=== PATIENT | male | born 1955 | race Caucasian/White ===

== ENCOUNTER 2018-05-23 10:45 | Inpatient (IN) | payer BC ==
[~2018-05-23] VITALS: Ht 182.9 cm; Wt 94.3 kg
[2018-05-23] VITALS (20 sets, daily range): BP systolic 108–173; BP diastolic 61–110; BMI 28.1
--- NOTE | ~2018-05-23 | HEMODYNAMI ---
PATIENT:CLIFF BREWSTER MEDICAL RECORD: [id number] : 51 LOCATION:[facility] D.2117 ADMISSION DATE: 05/23/18 Generatedon:05/25/20188:40 Patient name: CLIFF BREWSTER Patient #: [id number] SSN: : Date of study: 05/25/2018 Page: Of Hemodynamic Procedure Report Patient Data Patient Demographics Procedure consent was obtained First Name: CLIFF Gender: Male Last Name: NARCISA : 1955 Patient #: [id number] Age: 62 year(s) Race: Unknown Additional ID: [id number] Contact details [address]: [address] [place] [address] State: [place] City: [place] Zip code: [address] Past Medical History Allergies: No known allergies Admission Admission Data Admission Date: 05/23/2018 Admission Time: 12:05 Room #: [facility] Procedure Procedure Types Cath Procedure PCI Procedure Coronary Stent Coronary Stent Initial Procedure Description Procedure Date Procedure Date: 05/25/2018 Procedure Start Time: 8:27 Procedure End Time: 8:39 Procedure Staff Name Function Joe Gibbs MD Performing Physician Ragini Edwards RN Nurse Julia Silverio RT Scrub Valentine Shine RT Scrub Daljit Phan RT Medical Anthropology Director Procedure Data Cath Procedure Fluoroscopy Diagnostic fluoroscopy Total fluoroscopy Time: 3.2 time: 3.2 min min Diagnostic fluoroscopy Total fluoroscopy dose: 500 dose: 500 mGy mGy Contrast Material Contrast Material Type Amount (ml) Isovue 300 73 Entry Location Entry Primary Successful Side Size Upsize Upsize Entry Closure Succes sful Closure Location (Fr) 1 (Fr) 2 (Fr) Remarks Device Remarks Femoral Right 6 Fr Exoseal artery Short Estimated blood loss: 10 ml Procedure Complications No complications Procedure Medications Medication Administration Route Dosage 0.9% NaCl I.V. 100 ml/hr Oxygen etCO2 Nasal cannula 2 l/min Lidocaine 2% added to field 20 Heparin Flush Bag added to field 2 bags (1000units/500ml NS) Versed I.V. 2 mg Fentanyl I.V. 50 mcg Heparin Bolus I.V. 4000 units Versed I.V. 1 mg Fentanyl I.V. 25 mcg Hemodynamics Rest Heart Rate: 80 (bpm) Snapshots Pre Cath Intra NCS Post Cath Vital Signs Time Heart Resp SPO2 etCO2 NIBP (mmHg) Rhythm Pain Sedation Rate (ipm) (%) (mmHg) Status Level (bpm) 8:12:23 85 18 98 34.2 186/106(154) NSR 0 (11) 10(A) , No pain 8:16:50 86 18 97 36.5 176/100(138) NSR 0 (11) 10(A) , No pain 8:21:10 83 18 98 34.2 163/97(121) NSR 0 (11) 10(A) , No pain 8:25:24 81 17 96 15.6 158/102(128) NSR 0 (11) 10(A) , No pain 8:29:44 80 17 98 40.2 166/95(121) NSR 0 (11) 9(A) , No pain 8:34:06 78 16 99 32 162/89(120) NSR 0 (11) 9(A) , No pain 8:38:18 78 17 96 15.6 156/95(128) NSR 0 (11) 10(A) , No pain Medications Time Medication Route Dose Verified Delivered Reason Notes Effectiveness by by 8:08:37 0.9% NaCl I.V. 100 Joe Ragini used for ml/hr Bernie Edwards leather leveler 8:08:44 Oxygen etCO2 2 Joe Ragini used for Nasal l/min Bernie Edwards procedure cannula RN 8:08:51 Lidocaine 2% added 20ml Joe Joe for local to vial Bernie Gibbs MD anesthetic field 8:09:03 Heparin Flush added 2 Joe Joe used for Bag to bags Bernie Gibbs MD procedure (1000units/500ml field NS) 8:25:02 Versed I.V. 2 mg Joe Ragini for sedation Bernie Edwards RN 8:25:08 Fentanyl I.V. 50 Joe Ragini for sedation mcg Bernie Edwards RN 8:30:35 Heparin Bolus I.V. 4000 Joe Ragini for verifi ed units Bernie Edwards anticoagulation with Dr. OSCAR Gibbs 8:30:48 Versed I.V. 1 mg Joe Eid for sedation Bernie Edwards RN 8:30:54 Fentanyl I.V. 25 Joe Eid for sedation mcg Bernie Edwards director of home health services Log Time Note 7:42:40 Time tracking: Regular hours (M-F 7:00 - 5:00) 7:42:44 Plan of Care:Hemodynamics will remain stable., Cardiac rhythm will remain stable., Comfort level will be maintained., Respiratory function will remain adequate., Patient/ family verbilizes understanding of procedure., Procedure tolerated without complication., Recovers from procedure without complications.. 7:42:58 Daljit Phan RT(R) sent for patient. Start room use. 8:03:05 Patient received from PCU to CCL 1 Alert and oriented. Tansferred to table in Supine position. 8:03:06 Warm blankets applied, and chaka hugger turned on for patient comfort. 8:03:07 Correct patient and procedure confirmed by team. 8:03:08 Signed procedure consent form obtained from patient. 8:03:09 ECG and BP/O2 sat monitors applied to patient. 8:03:10 Full Disclosure recording started 8:08:01 Vital chart was started 8:08:05 Rhythm: sinus rhythm 8:08:13 H&P Date Dictated: 05/23/2018 Within 30 days and on chart.. 8:08:14 Pre-procedure instructions explained to patient. 8:08:14 Pre-op teaching completed and patient verbalized understanding. 8:08:16 Family in patients room. 8:08:17 Patient NPO since Midnight. 8:08:22 Is the patient allergic to Iodine/contrast media? No. 8:08:23 Is patient on blood thinner?Yes 8:08:26 ACC The patient was administered the following blood thiners within the last 24 hours: ACCPlavix 8:08:37 0.9% NaCl 100 ml/hr I.V. was administered by Ragini Edwards RN; used for procedure; 8:08:44 Oxygen 2 l/min etCO2 Nasal cannula was administered by Ragini Edwards RN; used for procedure; 8:08:51 Lidocaine 2% 20ml vial added to field was administered by Joe Gibbs MD; for local anesthetic; 8:08:58 Patient diabetic? No. 8:09:03 Heparin Flush Bag (1000units/500ml NS) 2 bags added to field was administered by Joe Gibbs MD; used for procedure; 8:09:21 Previous problem with sedation/anesthesia? No ? 8:09:23 Snore? Yes 8:09:24 Sleep apnea? No 8:09:25 Deviated septum? No 8:09:25 Opens mouth fully? Yes 8:09:26 Sticks out tongue? Yes 8:09:40 Airway obstruction? Yes COPD 8:09:44 Dentures? No ? 8:09:47 Pre procedure: right dorsailis pedis pulse 2+ Normal; easily identifiable; not easily obliterated 8:09:50 Patient pain scale 0/10 ?. 8:10:00 IV patent on arrival in right wrist with 0.9% NaCl at [facility]. 8:10:02 Lab results completed and on chart. 8:15:42 Right groin area was prepped with chlora-prep and draped in sterile fashion 8:15:43 Alarms reviewed by R. N. 8:15:47 Sharps counted by scrub and verified by R.N. 8:15:57 Use device set CATH PACK 8:15:58 ACIST Syringe (25303) opened to sterile field. 8:15:58 ACIST Hand Control (05940) opened to sterile field. 8:15:59 ACIST Manifold (77068) opened to sterile field. 8:15:59 Medline Cath Pack ([id number]) opened to sterile field. 8:15:59 Bag Decanter (2002) opened to sterile field. 8:16:00 DIAGNOSTIC WIRE .035 260cm J wire (115530) opened to sterile field. 8:16:13 CHOICE PT Extra Support 182cm wire ([id number]) opened to sterile field. 8:16:13 INFLATOR Merit BasixCompak (LA1876) opened to sterile field. 8:16:14 SHEATH 6FR [place] (NVZ999) opened to sterile field. 8:24:29 Final Timeout: patient, procedure, and site verified with staff and physician. All members of the team are in agreement. 8:24:31 Right groin site verified by team. 8:24:37 Fire Safety Assessment: A--An alcohol-based skin anteseptic being used preoperatively., C--Open oxygen or nitrous oxide is being used., D--An ESU, laser, or fiber-optic light is being used. 8::41 Physical assessment completed. ASA score P 2 - A patient with mild systemic disease as per Joe Gibbs MD. 8:24:45 Sedation plan: IV Moderate Sedation Medication:Versed, Fentanyl 8:25:02 Versed 2 mg I.V. was administered by Ragini Edwards RN; for sedation; 8::08 Fentanyl 50 mcg I.V. was administered by Ragini Edwards RN; for sedation; 8:25:14 Zero performed for pressure channel P1 8::08 GUIDE 6FR XBLAD 3.5 catheter ([id number]) opened to sterile field. 8::24 Procedure started. 8::26 Local anesthetic to right femoral artery with Lidocaine 2% by Joe Gibbs MD.INITIAL ACCESS ONLY 8:28:18 A 6 Fr Short sheath was inserted into the Right Femoral artery 8::35 Baseline sample Acquired. 8:28:59 6 Fr XBLAD 3.5 guide catheter was inserted over the wire 8::35 Heparin Bolus 4000 units I.V. was administered by Ragini Edwards RN; for anticoagulation; verified with Dr. Gibbs 8:30:48 Versed 1 mg I.V. was administered by Ragini Edwards RN; for sedation; 8:30:54 Fentanyl 25 mcg I.V. was administered by Ragini Edwards RN; for sedation; 8:32:00 CHOICE PT ES wire advanced. 8:34:01 Place stent Inflation Number: 1 A INTEGRITY RX 2.5 x 26 stent ([id number]) was prepped and advanced across the Mid LAD. The stent was deployed at 15 EZEQUIEL for 0:11 (min:sec). 8::41 Stent catheter was removed intact over wire. 8:35:41 Place stent Inflation Number: 2 A INTEGRITY RX 2.5 x 26 stent ([id number]) was prepped and advanced across the Mid LAD. The stent was deployed at 13 EZEQUIEL for 0:10 (min:sec). 8:36:12 Stent catheter was removed intact over wire. 8:36:13 Wire removed. 8:36:14 Guide catheter removed. 8:36:22 Sheath removed intact; hemostasis achieved with Exoseal to the Right Femoral artery. 8:36:43 Procedure ended.(Physican Out) 8:37:00 Fluoroscopy time 03.20 minutes. 8:37:03 Flurop Dose total: 500 8:37:03 Fluoroscopy dose: 500 mGy 8:37:06 Contrast amount:Isovue 300 73ml. 8:37:08 Sharps counted by scrub and verified by R.N. 8:37:09 Insertion/operative site no bleeding no hematoma. 8:37:12 Post-op/insertion site Right Femoral artery dressed using a 4 x 4 and Tegaderm. 8:37:15 Post right femoral artery:stable, clean and dry 8:37:17 Post Procedure Pulses reassessed and unchanged 8:37:20 Post-procedure physical assessment completed. ASA score P 2 - A patient with mild systemic disease as per Joe Gibbs MD. 8:38:26 Post procedure rhythm: unchanged. 8:38:29 Estimated blood loss: 10 ml 8:38:30 Post procedure instruction explained to patient.Patient verbalizes understanding. 8:38:31 Patient needs reinforcement of post procedure teaching. 8:38:46 Procedure Complication : No complications 8:38:47 See physician's report for complete and final results. 8:39:06 Tegaderm 4 x 4 (1626W) opened to sterile field. 8:39:07 EXOSEAL 6Fr (EX600) opened to sterile field. 8:39:27 Procedure and supply charges have been captured, reviewed, submitted and are correct. 8:39:27 Vital chart was stopped 8:39:29 Report given to PCU. 8:39:36 Patient transfered to PCU with Bed. 8:39:45 Procedure ended. 8:39:45 Full Disclosure recording stopped 8:39:49 End room use (Document Last) Intervention Summary Intervention Notes Time ActionType Lesion and Equipment Action# Pressure Duration Attributes Used 8:34:01 Place stent Mid LAD INTEGRITY RX 1 15 00:11 2.5 x 26 stent ([id number]) 8:35:41 Place stent Mid LAD INTEGRITY RX 2 13 00:10 2.5 x 26 stent ([id number]) Device Usage Item Name Manufacture Quantity Catalog Number Hospital Part Current Mini [facility] Lot# / Charge Number Stock Stock Serial# Code ACIST Acist 1 20342 679290 [id number] 492488 20 Syringe Medical (34698) Systems Inc ACIST Hand Acist 1 77026 327407 704383 643132 5 Control Medical (45666) Systems Inc ACIST Acist 1 38832 705125 843869 142293 5 Manifold Medical (16939) Systems Inc Medline Cath Medline 1 [id number] 081903 23130 107753 5 Pack ([id number]) Bag Decanter Microtek 1 2001S 471277 57141 652753 5 (2001S) Medical Inc. DIAGNOSTIC St Yang 1 225126 560767 428243 855895 30 WIRE .035 260cm J wire (843780) CHOICE PT Reydon 1 [id number] 966369 763299 248062 5 Extra Scientific Support 182cm wire ([id number]) INFLATOR Merit 1 ZQ6718 706123 996222 033926 15 Amiare BasixCompak (OH7459) SHEATH 6FR Terumo 1 GMY337 009905 473588 578087 40 [place] (WAI738) GUIDE 6FR Cardinal 1 [id number] 128464 876768 290184 10 XBLAD 3.5 Health catheter (18477600) INTEGRITY RX Medtronic 2 [id number] 145792 591960 176624 5 [id number] 2.5 x 26 [id number] stent ([id number]) Tegaderm 4 x 3M 1 1626W 525702 534633 964381 5 4 (1626W) EXOSEAL 6Fr Cardinal 1 EX600 561475 582574 403045 10 (EX600) Health Signature Audit [place] Stage Time Signature Unsigned Intra-Procedure 05/25/2018 Valentine 8:40:32 AM Counts RT(R) [facility] [address] [place] [address]
--- NOTE | ~2018-05-23 | HEMODYNAMI ---
PATIENT:CLIFF BREWSTER MEDICAL RECORD: [id number] : 51 LOCATION:[facility]# [id number] ADMISSION DATE: 05/23/18 Generatedon:05/23/201811:41 Patient name: CLIFF BREWSTER Patient #: [id number] SSN: : Date of study: 05/23/2018 Page: Of Hemodynamic Procedure Report Patient Data Patient Demographics Procedure consent was obtained First Name: CLIFF Gender: Male Last Name: NARCISA : 1955 Patient #: [id number] Age: 62 year(s) Race: Unknown Additional ID: [id number] Past Medical History Allergies: No known allergies Admission Admission Data Admission Date: 05/23/2018 Admission Time: 10:45 Procedure Procedure Types Cath Procedure Diagnostic Procedure C [facility] w/Coronaries PCI Procedure AMI/SVG/REFURBISH TECHNICIAN PTCA or Stent AMI-BMS/BALBINA Initial Procedure Description Procedure Date Procedure Date: 05/23/2018 Procedure Start Time: 11:21 Procedure End Time: 11:35 Procedure Staff Name Function Valentine Shine RT Monitor Mercedes Santamaria RT Scrub Franck Murillo RN Nurse Joe Gibbs MD Performing Physician Julia Silverio RT Scrub Procedure Data Cath Procedure Fluoroscopy Diagnostic fluoroscopy Total fluoroscopy Time: 2 time: 2 min min Diagnostic fluoroscopy Total fluoroscopy dose: 427 dose: 427 mGy mGy Contrast Material Contrast Material Type Amount (ml) Isovue 300 57 Entry Location Entry Primary Successful Side Size Upsize Upsize Entry Closure Succes sful Closure Location (Fr) 1 (Fr) 2 (Fr) Remarks Device Remarks Femoral Right 6 Fr Exoseal artery Short Estimated blood loss: 10 ml Diagnostic catheters Device Type Used For End Catheter Placement MULTIPACK Pigtail 5 Fr LV Angiography catheter MULTIPACK JL 4.0 5Fr Left Coronary catheter Angiography MULTIPACK 3DRC 5Fr Right Coronary catheter Angiography Procedure Complications No complications Procedure Medications Medication Administration Route Dosage Oxygen etCO2 Nasal cannula 2 l/min Lidocaine 2% 20 Heparin Flush Bag added to field 2 bags (1000units/500ml NS) 0.9% NaCl I.V. 100 ml/hr Plavix P.O. 600 mg Versed I.V. 2 mg Fentanyl I.V. 100 mcg Versed I.V. 1 mg Fentanyl I.V. 50 mcg Heparin Bolus I.V. 5000 units Integrilin (Bolus I.V. 9 ml 2mg/ml) Hemodynamics Rest Heart Rate: 69 (bpm) Snapshots Pre Cath Intra NCS Post Cath Vital Signs Time Heart Resp SPO2 etCO2 NIBP (mmHg) Rhythm Pain Sedation Rate (ipm) (%) (mmHg) Status Level (bpm) 11:12:25 67 20 95 0 Measuring NSR 0 (11) 10(A) , No pain 11:13:12 68 18 95 0 195/116(133) NSR 0 (11) 10(A) , No pain 11:17:50 73 14 98 0 187/105(137) NSR 0 (11) 10(A) , No pain 11:22:10 71 18 98 0 154/93(125) NSR 0 (11) 9(A) , No pain 11:26:29 76 17 96 0 151/95(117) NSR 0 (11) 9(A) , No pain 11:30:53 73 17 95 0 146/99(123) NSR 0 (11) 10(A) , No pain 11:34:13 77 18 95 0 150/101(125) NSR 0 (11) 10(A) , No pain Medications Time Medication Route Dose Verified Delivered Reason Notes Effectiveness by by 11:09:21 Oxygen etCO2 2 Joe Buffie used for Nasal l/min Bernie Murillo RN procedure cannula 11:10:27 Lidocaine 2% 20ml Joe Buffie for local vial Bernie Murillo RN anesthetic 11:10:33 Heparin Flush added 2 Joe Buffie used for Bag to bags Bernie Murillo RN procedure (1000units/500ml field NS) 11:10:40 0.9% NaCl I.V. 100 Joe Buffie Per physician ml/hr Bernie Murillo RN 11:10:51 Plavix P.O. 600 Joe Buffie for mg Bernie Murillo RN antiplatelet therapy 11:17:09 Versed I.V. 2 mg Joe Hidalgoie for sedation Bernie Murillo RN 11:17:14 Fentanyl I.V. 100 Joe Hidalgoie for sedation mcg Bernie Murillo RN 11:19:15 Versed I.V. 1 mg Joe Juárez for sedation Bernie Murillo RN 11:19:18 Fentanyl I.V. 50 Joe Juárez for sedation mcg Bernie Murillo RN 11:24:40 Heparin Bolus I.V. 5000 Joe Juárez for verif ied units Bernie Murillo RN anticoagulation with dr gibbs 11:26:51 Integrilin I.V. 9 ml Joe Juárez for waste d 1 (Bolus 2mg/ml) Bernie Murillo RN antiplatelet ml of therapy vial Procedure Log Time Note 11:00:27 Franck Murillo RN sent for patient. Start room use. 11:00:28 Time tracking: Regular hours (M-F 7:00 - 5:00) 11:00:32 Plan of Care:Hemodynamics will remain stable., Cardiac rhythm will remain stable., Comfort level will be maintained., Respiratory function will remain adequate., Patient/ family verbilizes understanding of procedure., Procedure tolerated without complication., Recovers from procedure without complications.. 11:06:29 Patient received from ED to CCL 1 Alert and oriented. Tansferred to table in Supine position. 11:06:30 Warm blankets applied, and chaka hugger turned on for patient comfort. 11:06:31 Correct patient and procedure confirmed by team. 11:06:32 Signed procedure consent form obtained from patient. 11:06:33 ECG and BP/O2 sat monitors applied to patient. 11:06:34 Full Disclosure recording started 11:08:23 H&P Date Dictated: 05/23/2018 ER History on chart., New H&P dictated by physician.. 11:08:24 Pre-op teaching completed and patient verbalized understanding. 11:08:24 Pre-procedure instructions explained to patient. 11:08:29 Family in waiting room. 11:08:32 Patient NPO since Breakfast. 11:08:42 Patient allergic to No known allergies 11:08:44 Is the patient allergic to Iodine/contrast media? No. 11:08:45 Is patient on blood thinner?Yes 11:08:57 ACC The patient was administered the following blood thiners within the last 24 hours: ACCAspirin 11:08:59 Patient diabetic? No. 11:09:01 ACC The patient was administered the following blood thiners within the last 24 hours: ACCPlavix 11:09:05 If diabetic: On Metformin? No 11:09:07 Previous problem with sedation/anesthesia? No ? 11:09:08 Snore? Yes 11:09:09 Sleep apnea? No 11:09:10 Deviated septum? No 11:09:11 Sticks out tongue? Yes 11:09:11 Opens mouth fully? Yes 11:09:14 Airway obstruction? Yes COPD 11:09:17 Dentures? No ? 11:09:21 Pre procedure: right dorsailis pedis pulse 2+ Normal; easily identifiable; not easily obliterated 11:09:21 Oxygen 2 l/min etCO2 Nasal cannula was administered by Franck Murillo RN; used for procedure; 11:09:30 Patient pain scale 2/10 CHEST PAIN. 11:09:48 IV patent on arrival in left antecubital, right wrist with 0.9% NaCl at O. 11:09:54 Lab results pending. 11:09:57 Right groin area was prepped with chlora-prep and draped in sterile fashion 11:09:59 Sharps counted by scrub and verified by R.N. 11:09:59 Alarms reviewed by R. N. 11:10:01 Use device set Femoral Dx 11:10:03 Medline Cath Pack ([id number]) opened to sterile field. 11:10:03 Bag Decanter (2002S) opened to sterile field. 11:10:03 ACIST Syringe (78295) opened to sterile field. 11:10:04 ACIST Hand Control (17223) opened to sterile field. 11:10:05 Tegaderm 4 x 4 (1626W) opened to sterile field. 11:10:05 ACIST Manifold (28723) opened to sterile field. 11:10:07 DIAGNOSTIC Multipack 5Fr catheter set (VH1181) opened to sterile field. 11:10:08 DIAGNOSTIC WIRE .035 260cm J wire (474917) opened to sterile field. 11:10:21 CHOICE PT Extra Support 182cm wire ([id number]) opened to sterile field. 11:10:22 INFLATOR Merit BasixCompak (KM0937) opened to sterile field. 11:10:23 SHEATH 6FR Metz (JKN529) opened to sterile field. 11:10:27 Lidocaine 2% 20ml vial was administered by Franck Murillo RN; for local anesthetic; 11:10:33 Heparin Flush Bag (1000units/500ml NS) 2 bags added to field was administered by Franck Murillo RN; used for procedure; 11:10:35 Vital chart was started 11:10:40 0.9% NaCl 100 ml/hr I.V. was administered by Franck Murillo RN; Per physician; 11:10:50 Baseline sample Acquired. 11:10:51 Plavix 600 mg P.O. was administered by Franck Murillo RN; for antiplatelet therapy; 11:10:57 Rhythm: sinus rhythm 11:13:10 IV Extension Set opened to sterile field. 11:16:11 Physician paged 11:16:26 Final Timeout: patient, procedure, and site verified with staff and physician. All members of the team are in agreement. 11:16:28 Right groin site verified by team. 11:16:31 Fire Safety Assessment: A--An alcohol-based skin anteseptic being used preoperatively., C--Open oxygen or nitrous oxide is being used., D--An ESU, laser, or fiber-optic light is being used. 11:16:34 Physical assessment completed. ASA score P 3 - A patient with severe systemic disease as per Joe Gibbs MD. 11:16:37 Sedation plan: IV Moderate Sedation Medication:Versed, Fentanyl 11:17:09 Versed 2 mg I.V. was administered by Franck Murillo RN; for sedation; 11:17:14 Fentanyl 100 mcg I.V. was administered by Franck Murillo RN; for sedation; 11:19:15 Versed 1 mg I.V. was administered by Franck Murillo RN; for sedation; 11:19:17 Zero performed for pressure channel P1 11:19:18 Fentanyl 50 mcg I.V. was administered by Franck Murillo RN; for sedation; 11:19:20 Zero performed for pressure channel P1 11::26 Zero performed for pressure channel P1 11::41 Procedure started. 11::44 Local anesthetic to right femoral artery with Lidocaine 2% by Joe Gibbs MD.INITIAL ACCESS ONLY 11:22:16 A 6 Fr Short sheath was inserted into the Right Femoral artery 11::46 A MULTIPACK Pigtail 5 Fr catheter was advanced over the wire and used for LV Angiography. 11:23:37 LV gram done using AVERY 11::40 Injector settings: Ml/sec: 10, Volume: 20, 11::45 EF : 60 % 11:24:01 Catheter removed. 11:24:11 A MULTIPACK JL 4.0 5Fr catheter was advanced over the wire and used for Left Coronary Angiography. 11::40 Heparin Bolus 5000 units I.V. was administered by Franck Murillo RN; for anticoagulation; verified with dr gibbs 11:25:09 Catheter removed. 11:25:19 A MULTIPACK 3DRC 5Fr catheter was advanced over the wire and used for Right Coronary Angiography. 11:25:21 Catheter removed. 11:25:29 GUIDE 6FR HS II catheter ([id number]) opened to sterile field. 11:25:32 Use device set MAGALI PCI 11:26:06 6 Fr HS II guide catheter was inserted over the wire 11:26:17 CHOICE PT ES wire advanced. 11:26:51 Integrilin (Bolus 2mg/ml) 9 ml I.V. was administered by Franck Murillo RN; for antiplatelet therapy; wasted 1 ml of vial 11:28:10 Place stent Inflation Number: 1 A INTEGRITY RX 4.0 x 26 stent ([id number]) was prepped and advanced across the Dist RCA. The stent was deployed at 13 EZEQUIEL for 0:08 (min:sec). 11:28:31 Wire removed. 11:28:31 Stent catheter was removed intact over wire. 11:28:32 Guide catheter removed. 11:28:41 Sheath removed intact; hemostasis achieved with Exoseal to the Right Femoral artery. 11:28:42 Procedure ended.(Physican Out) 11::05 Fluoroscopy time 02.00 minutes. 11:31:08 Fluoroscopy dose: 427 mGy 11:31:08 Flurop Dose total: 427 11:31:14 Contrast amount:Isovue 300 57ml. 11:31:15 Sharps counted by scrub and verified by R.N. 11:31:16 Insertion/operative site no bleeding no hematoma. 11:31:19 Post-op/insertion site Right Femoral artery dressed using a 4 x 4 and Tegaderm. 11:31:29 Post right femoral artery:stable, clean and dry 11:31:32 Post Procedure Pulses reassessed and unchanged ::36 Post-procedure physical assessment completed. ASA score P 3 - A patient with severe systemic disease as per Joe Gibbs MD. 11:31:39 Post procedure rhythm: unchanged. 11:31:41 Estimated blood loss: 10 ml 11:31:43 Patient needs reinforcement of post procedure teaching. 11:31:43 Post procedure instruction explained to patient.Patient verbalizes understanding. 11:32:08 Procedure type changed to Cath procedure, Diagnostic procedure, LHC, LHC w/Coronaries, PCI procedure, AMI/SVG/REFURBISH TECHNICIAN PTCA or Stent, AMI-BMS/BALBINA Initial 11:32:12 Procedure Complication : No complications 11:32:14 See physician's report for complete and final results. 11:32:25 EXOSEAL 6Fr (EX600) opened to sterile field. 11:33:06 Femstop placed over the right femoral artery at 170 mmHg. Hemostasis achieved. 11:33:20 FEMSTOP Gold (U84666) opened to sterile field. 11:34:15 Procedure and supply charges have been captured, reviewed, submitted and are correct. 11:34:16 Vital chart was stopped 11:34:19 Report given to CVICU. 11:34:23 Patient transfered to CVICU with Bed. 11:35:29 Full Disclosure recording stopped 11:35:29 Procedure ended. 11:35:34 End room use (Document Last) Intervention Summary Intervention Notes Time ActionType Lesion and Equipment Action# Pressure Duration Attributes Used 11:28:10 Place stent Dist RCA INTEGRITY RX 1 13 00:09 4.0 x 26 stent ([id number]) Device Usage Item Name Manufacture Quantity Catalog Number Hospital Part Current [facility] Lot# / Charge Number Stock Stock Serial# Code ACIST Acist 1 77172 804034 295494 155450 20 Syringe Medical (73257) Systems Inc Bag Decanter Microtek 1 2001S 436767 04886 523102 5 () Medical Inc. Medline Cath Medline 1 [id number] 807270 72156 088268 5 Pack ([id number]) ACIST Hand Acist 1 60982 227930 416837 943162 5 Control Medical (70804) Systems Inc ACIST Acist 1 93907 384223 697565 941726 5 Manifold Medical (20897) Systems Inc Tegaderm 4 x 3M 1 1626W 650782 362764 260370 5 4 (1626W) DIAGNOSTIC Cardinal 1 XZ1736 106508 91996 130876 30 Multipack Health 5Fr catheter set (AH3791) DIAGNOSTIC St Yang 1 685749 633144 945961 932288 30 WIRE .035 260cm J wire (304307) CHOICE PT [place] 1 [id number] 880149 240689 761157 5 Extra Scientific Support 182cm wire (1841967D0) INFLATOR Merit 1 MA5590 762356 171829 338326 15 Merit Medical BasixCompak (VQ6837) SHEATH 6FR Terumo 1 HXR769 902887 036280 294018 40 Metz (JWR763) IV Extension Hospira 1 69298-68 048397 82561 188967 5 Set MULTIPACK Cardinal 1 947083 5 Pigtail 5 Fr Health catheter MULTIPACK JL Cardinal 1 129063 5 4.0 5Fr Health catheter MULTIPACK Cardinal 1 989860 5 3DRC 5Fr Health catheter GUIDE 6FR HS Medtronic 1 PF9OALO 259538 11244 215852 1 II catheter ([id number]) INTEGRITY RX Medtronic 1 [id number] 647632 273990 030059 5 [id number] 4.0 x 26 stent ([id number]) EXOSEAL 6Fr Cardinal 1 EX600 384302 763145 245002 10 (EX600) Health FEMSTOP Gold St Yang 1 Z78554 697713 433004 486002 5 (F13178) Signature Audit [place] Stage Time Signature Unsigned Intra-Procedure 05/23/2018 Valentine Grijalva Counts 11:35:48 AM Counts RT(R) RT(R) 05/23/2018 11:39:50 AM Intra-Procedure 05/23/2018 Valentine 11:41:23 AM Counts RT(R) Signatures Monitor : Valentine Signature : Counts RT Date : Time : [id number] [place] [address]
[2018-05-23 11:11] LABS: BASOPHILS 0.3 % (0-2); EOSINOPHILS 0.7 % (0-7); HEMATOCRIT 45.5 % (42.0-54.0); HEMOGLOBIN 16.2 g/dL (13.5-17.5); IMMATURE GRANULOCYTES 0.2 % (0-5); LYMPHOCYTES 11.9 % (15-50); MCH 32.2 pg (26.0-34.0); MCHC 35.6 g/dL (31.0-37.0); MCV 90.5 fL (80.0-100.0); MEAN PLATELET VOLUME 9.7 fL (7.4-10.4); MONOCYTES 9.3 % (2-11); NEUTROPHILS 77.6 % (40-80); PLATELET COUNT 232 10x3/uL (130-400); RBC 5.03 10x6/uL (4.20-6.10); RDW 13.9 % (11.5-14.5); WBC 10.6 10x3/uL (4.8-10.8)
--- NOTE | 2018-05-23 11:20 | HP ---
PATIENT: CLIFF BREWSTER MEDICAL RECORD: [id number] ACCOUNT: [id number] LOCATION:[facility] : 51 ADMISSION DATE: 05/23/18 PCP: No PCP HISTORY AND PHYSICAL EXAMINATION ADMITTING DIAGNOSES: 1. Acute inferior myocardial infarction. 2. Coronary artery disease. 3. Chronic obstructive pulmonary disease. 4. Smoking. 5. Hypertension. HISTORY OF PRESENT ILLNESS: This is a gentleman who presents to [facility] with an acute myocardial infarction. The pain started last night. He presented this morning. He continued to have pain. He had ST elevation and received thrombolytic therapy. His ST elevation has resolved. He continues to have pain. PHYSICAL EXAMINATION: GENERAL APPEARANCE: Well-nourished, well-developed, appears stated age. Level of distress, comfortable. PSYCHIATRIC: Mental status, alert, normal affect. Orientation, oriented to time, place and person. EYES: Lids and conjunctiva, noninjected. No discharge, no pallor. ENT: Lips, teeth, gums, normal dentition. Oropharynx, no cyanosis, no pallor. NECK: Carotid arteries, bilateral normal upstroke, no bruits, no thrills. JUGULAR VEINS: No jugular venous pressure or distention. CERVICAL LYMPH NODES: Nontender, nonenlarged. THYROID: Not enlarged. Nontender. No nodules. LUNGS: Respiratory effort, unlabored. CHEST: Normal curvature. No thoracic deformity. No chest wall tenderness. Percussion, resonant. Auscultation, clear. No wheezes, no rales, no rhonchi. CARDIOVASCULAR: Precordial exam, nondisplaced. No heaves or pericardial thrills. Rate and rhythm, regular. Heart sounds, normal S1, normal S2. No S3, no gallop, no rub. Systolic murmur, not heard. Diastolic murmur, not heard. EXTREMITIES: No cyanosis, no edema. Peripheral pulses, full and equal in all extremities, except as noted. No bruits appreciated. ABDOMEN: Soft, nondistended. Normal aorta. No bruit. Nontender. No masses. Liver, nontender, no hepatomegaly. Spleen, nontender, no splenomegaly. MUSCULOSKELETAL: No joint tenderness. No joint swelling. No erythema. NEUROLOGICAL: Normal gait, normal strength, normal tone. SKIN: Warm and dry. OVERALL IMPRESSION: Acute myocardial infarction, partially aborted by thrombolytic therapy, continued pain. We will proceed with coronary angiography. Further care depends upon the findings of the angiography. TRANSINT:[id number] Voice Confirmation ID: [id number] DOCUMENT ID: [id number] HISTORY AND PHYSICAL [id number] CLIFF BREWSTER JEFFREY MD at 1120 CC: [id number] DICTATION DATE: 05/23/18 1104 ASSIGNMENT AGENT: 05/23/18 1118 [place] [id number]
[2018-05-23] MEDS ORDERED: LISINOPRIL30 MG PO (12:13)
--- NOTE | 2018-05-23 13:29 | NUR ---
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
--- NOTE | 2018-05-23 14:03 | NUR ---
PAGED DR STRINGER AND NOTIFIED OF HR HITTING 52 AND BP 173/110, UPDATED THAT GROIN IS SOFT EVEN IN AREA MARKED BY AUDIO VIDEO TECH, ORDERS FOR PROCARDIA XL 60MGX1 DOSE
[2018-05-23 16:19] LABS: ANION GAP 12.5 mmol/L (8-16); CALCIUM 8.1 mg/dL (8.5-10.1); CARBON DIOXIDE 25.7 mmol/L (21.0-32.0); CREATININE - SERUM 1.2 mg/dL (0.6-1.3); POTASSIUM - SERUM 4.2 mmol/L (3.5-5.1)
--- NOTE | 2018-05-23 16:27 | NUR ---
PT COMPLAINING OF CHEST PRESSURE, PAGED TAUJULIAN WITH ORDERS FOR MORPHINE 2-4MG Q1HOUR PRN, READ BACK FOR CONFIRMATION
--- NOTE | 2018-05-23 19:30 | NUR ---
REPORT RECEIVED CARE ASSUMED SHIFT ASSESSMENT COMPLETED SEE FLOWSHEET. NOTE RIGHT GROIN SOFT AND SUPPLE. PEDAL PULSES PRESENT AND EASILY PALPABLE. SOME REDNESS PRESENT IN FOLDS NOT RELATED TO PROCEDURE. PT DENIES NEEDS DENIES PAIN. MONITORED PER STANDARD CVICU PROTOCOL WITH ALL ALARMS SET VERIFIED AND AUDIBLE AT NURSES STATION. IV TO LAC WILL NOT FLUSH. DC/D WITH CATH TIP INTACT. NS AT KVO TO RIGHT WRIST IV LINES AND FLUIDS ARE CURRENT AND APPROPRIATELY LABELED. BED IN LOW POSITION CALL LIGHT IN REACH ABLE TO MAKE NEEDS KNOWN
--- NOTE | 2018-05-23 21:00 | NUR ---
PT SLEEPING EASILY AWAKEN. NO CHANGE TO RIGHT GROIN PEDAL PULSES EASILY PALPABLE
--- NOTE | 2018-05-23 23:00 | NUR ---
SHIFT REASSESSMENT COMPLETED SEE FLOWSHEET. PT OFFERED AND ACCEPTED HS SNACK. DENIES FURTHER NEEDS. NO CHANGE IN PULSES OR RIGHT GROIN.
[2018-05-24] VITALS (9 sets, daily range): BP systolic 90–176; BP diastolic 60–93; Ht 182.9 cm; Wt 94.3 kg
--- NOTE | 2018-05-24 01:00 | NUR ---
PT SLEEPING RESP REG AND NONLABORED
--- NOTE | 2018-05-24 03:00 | NUR ---
SHIFT REASSESSMENT COMPLETED SEE FLOWSHEET. NO SIGNIFICANT CHANGES. VSS
--- NOTE | 2018-05-24 03:56 | NUR ---
PT C/O HEADACHE REQUESTED AN "ASPIRIN". GIVEN MEDS DOCUMENTED ON JUN. PARTIAL DOSE PER SYMPTOMS PRESENTED AND PER PT.
--- NOTE | 2018-05-24 05:00 | NUR ---
PT RESTING EASILY AROUSED. DENIES NEEDS AT THIS TIME
--- NOTE | 2018-05-24 10:11 | NUR ---
0700 PT RECIEVED ALERT AND OREINTED ON ROOM AIR VSS DENIES PAIN PIV R WRIST NS KVO, CONTIENNT, REPOSTIIONS SELF, R GROIN SITE SOFT TO PALPATE, PULSES EASILY PALPABLE 0800 ATE 75% BREAKFAST, ASSISTED TO BATHROOM AND PROVIDED BATH 1000 WILL TRANSFER TO ROOM 2116, DAUGHTER AWARE
--- NOTE | 2018-05-24 10:17 | NUR ---
REPORT CALLED MIKEL THOMPSON
--- NOTE | 2018-05-24 10:42 | NUR ---
TRANSFER FROM ICU BY W/C. OREINTED TO ROOM. CALL LIGHT IN REACH. WILL CONT. PLAN OF CARE.
--- NOTE | 2018-05-24 16:22 | MORECARE ---
CASE MANAGEMENT DISCHARGE SUMMARY PATIENT: CLIFF BREWSTER UNIT: [id number] ADM DATE: 05/23/18 AGE: 62 : 53 SEX: M ROOM/BED: D.2117 AUTHOR: ADELA DUCKWORTH PHYSICIAN: REFERRING PHYSICIAN: BAILEY STRINGER MD DATE OF SERVICE: 05/24/18 Discharge Plan Patient Name: CLIFF BREWSTER [facility] [facility] 1955 Planned Disposition: Home or Self Care Anticipated Discharge Date: Discharge Date: Expected LOS: Initial Reviewer: [email or web address] Initial Review Date: 05/24/2018 Generated: 05/24/18 5:21 pm DCPIA - Discharge Planning Initial Assessment Updated by [email or web address]: Annalise Chiu on 05/24/18 4:19 pm * Is the patient Alert and Oriented? Yes * How many steps to enter\exit or inside your home? * PCP [facility] in [place] * Pharmacy [facility] * Preadmission Environment Home with Family * ADLs Independent * Equipment None * List name and contact numbers for known caregivers / representatives who currently or will assist patient after discharge: CE BREWSTER - DAUGHTER - [phone] * Verbal permission to speak to the caregivers and representatives has been obtained from the patient. Yes * Community resources currently utilized None * Additional services required to return to the preadmission environment? No * Can the patient safely return to the preadmission environment? Yes * Has this patient been hospitalized within the prior 30 days at any hospital? No Patient Name: CLIFF BREWSTER Page 64705 at 1622 All edits/amendments must be made on the electronic document DICTATION DATE: 05/24/18 162 IMPLEMENTATION ANALYST: SHARRI 05/24/18 162 RPT#: [id number] DC DATE: STATUS: ADM IN [facility] [address] [place] [address] END OF REPORT
--- NOTE | 2018-05-24 16:33 | MORECARE ---
CASE MANAGEMENT DISCHARGE SUMMARY PATIENT: CLIFF BREWSTER UNIT: [id number] ADM DATE: 05/23/18 AGE: 62 : 53 SEX: M ROOM/BED: D.2117 AUTHOR: GUCCI,DOC PHYSICIAN: REFERRING PHYSICIAN: BAILEY STRINGER MD DATE OF SERVICE: 05/24/18 Discharge Plan Patient Name: CLIFF BREWSTER Facility: [facility]:[place] : 1955 Planned Disposition: Home or Self Care Anticipated Discharge Date: Discharge Date: Expected LOS: Initial Reviewer: [email or web address] Initial Review Date: 05/24/2018 Generated: 05/24/18 5:33 pm Comments DCP- Discharge Planning Updated by [email or web address]: Annalise Chiu on 05/24/18 3:[address] Patient Name: CLIFF BREWSTER Admission Status: ER Accout number: [id number] Admission Date: 05-23-2018 : 1955 Admission Diagnosis: Attending: JIMMY STRINGER Current LOS: 1 Anticipated DC Date: Planned Disposition: Home or Self Care Primary Insurance: [employer] DTS OUT OF STATE Discharge Planning Comments: CM MET WITH PATIENT AND DAUGHTER (CE) REGARDING DISCHARGE PLANNING / NEEDS. PATIENT STATES THAT HE LIVES WITH HIS DAUGHTER AND GRANDCHILDREN. PATIENT DENIES ANY MEDICAL EQUIPMENT OR HOME HEALTH SERVICES IN THE HOME PRIOR TO ADMISSION. PATIENT DENIES ANY DISCHARGE NEEDS AT THIS TIME. CM WILL CONTINUE TO FOLLOW AND ASSIST NEEDED WITH DISCHARGE PLANNING / NEEDS. User Experience Team Lead: Annalise Chiu DCPIA - Discharge Planning Initial Assessment Updated by [email or web address]: Annalise Chiu on 05/24/18 4:19 pm * Is the patient Alert and Oriented? Yes * How many steps to enter\exit or inside your home? * PCP [facility] in [place] * Pharmacy [facility] * Preadmission Environment Home with Family * ADLs Independent * Equipment None * List name and contact numbers for known caregivers / representatives who currently or will assist patient after discharge: CE BREWSTER - DAUGHTER - [phone] * Verbal permission to speak to the caregivers and representatives has been obtained from the patient. Yes * Community resources currently utilized None * Additional services required to return to the preadmission environment? No * Can the patient safely return to the preadmission environment? Yes * Has this patient been hospitalized within the prior 30 days at any hospital? No Last DP export: 05/24/18 3:21 p Patient Name: CLIFF BREWSTER Page 64236 at 1633 All edits/amendments must be made on the electronic document DICTATION DATE: 05/24/18 163 RELIEF MANAGER: SHARRI 05/24/181632 RPT#: [id number] DC DATE: STATUS: ADM IN [facility] [address] [place] [address] END OF REPORT
--- NOTE | 2018-05-24 19:46 | NUR ---
RESUMED CARE OF PT, LYING IN BED RESPIRATIONS EVEN AND UNLABORED ON ROOM AIR. CONVERATING ON THE PHONE, NO NEEDS NOTED AT THIS TIME. 79 SR ON TELEMETRY. CALL LIGHT IN REACH. SEE NURSE ASSESSMENT.
[2018-05-25] VITALS: BP 162/92
--- NOTE | 2018-05-25 01:13 | NUR ---
MIDNIGHT VITALS SHOWED ELEVATED BP OF 213/105, RECHECKED 161/92. WILL CONTINUE TO MONITOR CLOSELY.
[2018-05-25 01:15] VITALS: BP 161/92
[2018-05-25 04:00] VITALS: BP 161/87
--- NOTE | 2018-05-25 05:20 | NUR ---
NO CHANGES FROM PREVIOUS ASSESSMENT, REMAINS NPO. CALL LIGHT IN REACH.
--- NOTE | 2018-05-25 07:30 | NUR ---
RECEIVED PT IN BED EYES CLOSED RESP UNLABORED NAD NOTED
--- NOTE | 2018-05-25 07:55 | NUR ---
0755 PT TO FIELD SUPERVISOR VIA BED
[2018-05-25 08:00] VITALS: BP 179/103
--- NOTE | 2018-05-25 09:00 | NUR ---
RECEIVED PT BACK FROM NURSE INTERN VIA BED VSS PPPX4 DRSG TO RT ALE C/D/I SARAH NOTED
[2018-05-25] MEDS ORDERED: BAYER CHEWABLE81 MG PO (09:06)
[2018-05-25] MEDS ORDERED: PRAVACHOL40 MG PO (09:07)
[2018-05-25] MEDS ORDERED: PLAVIX75 MG PO (09:08)
[2018-05-25] MEDS ORDERED: LOPRESSOR25 MG PO (09:09)
[2018-05-25 11:57] VITALS: BP 152/85
--- NOTE | 2018-05-25 14:00 | NUR ---
REVIEWED DISCHARGE INSTRUCTIONS WITH PT STATES UNDERSTANDING COPY GIVEN DCD SALINE LOCK TO RT WRIST SITE WITHOUT REDNESS OR EDEMA PT DISCHARGED IN STABL CONDITION LEFT UNIT VIA W/C WITH ALL PERSONAL BELONGING
--- NOTE | 2018-05-28 08:36 | MORECARE ---
CASE MANAGEMENT DISCHARGE SUMMARY PATIENT: CLIFF BREWSTER UNIT: [id number] ADM DATE: 05/23/18 AGE: 62 : 53 SEX: M ROOM/BED: D.2117 AUTHOR: GUCCI,DOC PHYSICIAN: REFERRING PHYSICIAN: BAILEY STRINGER MD DATE OF SERVICE: 05/28/18 Discharge Plan Patient Name: CLIFF BREWSTER Facility: [facility]:[place] : 1955 Planned Disposition: Home or Self Care Anticipated Discharge Date: 05/25/18 Discharge Date: 05/25/2018 Expected LOS: 2 Initial Reviewer: [email or web address] Initial Review Date: 05/24/2018 Generated: 05/28/18 9:36 am Comments DCP- Discharge Planning Updated by [email or web address]: Annalise Chiu on 05/24/18 3:[address] Patient Name: CLIFF BREWSTER Admission Status: ER Accout number: [id number] Admission Date: 05-23-2018 : 1955 Admission Diagnosis: Attending: JIMMY STRINGER Current LOS: 1 Anticipated DC Date: Planned Disposition: Home or Self Care Primary Insurance: [employer] OUT OF STATE Discharge Planning Comments: CM MET WITH PATIENT AND DAUGHTER (CE) REGARDING DISCHARGE PLANNING / NEEDS. PATIENT STATES THAT HE LIVES WITH HIS DAUGHTER AND GRANDCHILDREN. PATIENT DENIES ANY MEDICAL EQUIPMENT OR HOME HEALTH SERVICES IN THE HOME PRIOR TO ADMISSION. PATIENT DENIES ANY DISCHARGE NEEDS AT THIS TIME. CM WILL CONTINUE TO FOLLOW AND ASSIST NEEDED WITH DISCHARGE PLANNING / NEEDS. Administrative Court Justice: Annalise Chiu DCPIA - Discharge Planning Initial Assessment Updated by [email or web address]: Annalise Chiu on 05/24/18 4:19 pm * Is the patient Alert and Oriented? Yes * How many steps to enter\exit or inside your home? * PCP [facility] in [place] * Pharmacy [facility] * Preadmission Environment Home with Family * ADLs Independent * Equipment None * List name and contact numbers for known caregivers / representatives who currently or will assist patient after discharge: CE BREWSTER - DAUGHTER - [phone] * Verbal permission to speak to the caregivers and representatives has been obtained from the patient. Yes * Community resources currently utilized None * Additional services required to return to the preadmission environment? No * Can the patient safely return to the preadmission environment? Yes * Has this patient been hospitalized within the prior 30 days at any hospital? No Last DP export: 05/24/18 3:33 p Patient Name: CLIFF BREWSTER Page 53089 at 0836 All edits/amendments must be made on the electronic document DICTATION DATE: 05/28/18834 LINING LAYER: SHARRI 05/28/18834 RPT#: [id number] DC DATE:05/25/18 STATUS: DIS IN [facility] [address] [place] [address] END OF REPORT
--- NOTE | 2018-05-28 11:45 | OP ---
PATIENT NAME: CLIFF BREWSTER MEDICAL RECORD: [id number] :51 LOCATION:D.M2 D.2117 ADMISSION DATE:05/23/18 SURGEON: BAILEY STRINGER MD DATE OF OPERATION: 05/25/2018 DATE OF SERVICE: 05/25/2018 PROCEDURES: 1. PTCA stent LAD. 2. Selective coronary angiography. INDICATION: Angina and coronary artery disease. DESCRIPTION OF PROCEDURE: After informed consent was obtained and after detailed explanation of risks, benefits as well as alternative therapies, the patient elected to proceed with angiogram and angioplasty. The right femoral area was prepped and draped in normal sterile fashion. Right femoral artery was cannulated via modified Seldinger technique with placement of 6-Greek sheath. All catheters exchanged through this sheath. FINDINGS: The left anterior descending has multiple areas of greater than 80% stenosis addressed with a 2.5 x 26-mm Integrity stent times 2. The result was 0% residual stenosis. OVERALL IMPRESSION: Successful percutaneous transluminal coronary angioplasty stent of the left anterior descending going from multiple areas of 80% plus initial stenosis to 0% residual. TRANSINT:[id number] Voice Confirmation ID: [id number] DOCUMENT ID: [id number] BAILEY STRINGER MD at 1145 CC: [id number] DICTATION DATE: 05/25/18 0843 MARINE PIPEFITTER HELPER: 05/25/18 1033 DIS IN 05/25/18 [facility] [address] [place] [address]
--- NOTE | 2018-05-28 11:45 | OP ---
PATIENT NAME: CLIFF BREWSTER MEDICAL RECORD: [id number] :51 LOCATION:D.M2 D.2117 ADMISSION DATE:05/23/18 SURGEON: BAILEY STRINGER MD DATE OF OPERATION: 05/23/2018 PROCEDURES: 1. PTCA stent RCA. 2. Left heart catheterization. 3. Selective coronary angiography. 4. Left ventriculogram. INDICATION: Acute inferior myocardial infarction. PROCEDURE IN DETAIL: After informed consent was obtained and after a detailed description of the risks, benefits as well as alternative therapies, the patient elected to proceed with angiogram and angioplasty. The right femoral area was prepped and draped in normal sterile fashion. Right femoral artery was cannulated via modified Seldinger technique with placement of 6-Malay sheath. All catheters exchanged through this sheath. FINDINGS: The left ventriculogram was performed in standard 30-degree AVERY view reveals preserved cardiac wall motion, ejection fraction in the 60% range. SELECTIVE CORONARY ANGIOGRAPHY: 1. Left main has no significant angiographic disease. 2. Left anterior descending has multiple areas of 70% to 80% stenosis at the mid vessel. 3. The left circumflex has 80% stenosis in the mid vessel. 4. The right coronary has 99% stenosis in the mid distal vessel. PTCA STENT OF THE RCA: The stent used was a 4.0 x 26 mm Integrity. Result was 0% residual stenosis. OVERALL IMPRESSION: Successful percutaneous transluminal coronary angioplasty stent of the right coronary artery going from 99% initial stenosis to 0% residual. TRANSINT:[id number] Voice Confirmation ID: [id number] DOCUMENT ID: [id number] BAILEY STRINGER MD at 1145 CC: [id number] DICTATION DATE: 05/23/18 1132 WAREHOUSE DISTRIBUTION SPECIALIST: 05/23/18 1236 DIS IN 05/25/18 [facility] [address] [place] [place] [id number]
--- NOTE | 2018-05-28 11:46 | DS ---
PATIENT:CLIFF REEVES :51 MEDICAL RECORD: [id number] DISCHARGE SUMMARY ADMISSION DATE: 05/23/18 DISCHARGE DATE: 05/25/18 DISCHARGE DIAGNOSES: 1. Acute inferior myocardial infarction. 2. PTCA and stent of RCA and LAD this admission. 3. Coronary artery disease. 4. Hypertension. 5. Hyperlipidemia. 6. Smoking history. HOSPITAL COURSE: Mr. Reeves presents with an acute inferior myocardial infarction, underwent PTCA and stent of the RCA. He had concomitant disease of the LAD. Underwent successful PTCA and stent of this territory as well. He was discharged home with the addition of aspirin, Plavix, Pravachol, Lopressor to his medical regimen. He will follow up with [facility] in 1 month. TRANSINT:[id number] Voice Confirmation ID: [id number] DOCUMENT ID: [id number] BAILEY STRINGER MD at 1146 CC: [id number] DICTATION DATE: 05/25/18 0842 OPTICAL MANAGER: 05/26/18 0024 DIS IN 05/25/18 [id number] [place] [address]
== END 2018-05-25 14:00 | disposition home or self-care (01) | DRG 249 ==
LOC: D.ER 10:45 → D.M2 12:05 → D.CVICU 12:05 → D.M2 05-24 10:29
PROVIDERS: ADMIT Internal Medicine Interventional Cardiology
PROC: 4A023N7 Measurement of Cardiac Sampling and Pressure, Left Heart, Percutaneous Approach (ICD-10-PCS; 2018-05-23)
PROC: B2111ZZ Fluoroscopy of Multiple Coronary Arteries using Low Osmolar Contrast (ICD-10-PCS; 2018-05-23)
PROC: B2151ZZ Fluoroscopy of Left Heart using Low Osmolar Contrast (ICD-10-PCS; 2018-05-23)
PROC: 02703DZ Dilation of Coronary Artery, One Artery with Intraluminal Device, Percutaneous Approach (ICD-10-PCS; principal; 2018-05-23 11:00)
PROC: 02703DZ Dilation of Coronary Artery, One Artery with Intraluminal Device, Percutaneous Approach (ICD-10-PCS; 2018-05-25)
DX: I21.19 ST elevation (STEMI) myocardial infarction involving other coronary artery of inferior wall (principal); I25.10 Atherosclerotic heart disease of native coronary artery without angina pectoris; J44.9 Chronic obstructive pulmonary disease, unspecified; I10 Essential (primary) hypertension; Z72.0 Tobacco use